=== PATIENT | female | born 1945 | race Caucasian/White ===

== ENCOUNTER 2023-12-10 12:35 | Emergency (ER) | payer MEDICAID, SELFPAY ==
--- NOTE | ~2023-12-10 | XR_ITS ---
EXAMINATION: XR KNEE, LEFT CLINICAL INFORMATION: Pain COMPARISON: None available. TECHNIQUE: Four views of the left knee. FINDINGS: No fracture or dislocation. The bones are osteopenic. There are mild degenerative changes with joint space narrowing at the medial femoral tibial joint and small osteophytes at the patellofemoral joint. No joint effusion. XR/XR knee LT 4V IMPRESSION: Osteopenia and mild degenerative changes.
--- NOTE | ~2023-12-10 | US_ITS ---
EXAMINATION: US VENOUS ULTRASOUND WITH DOPPLER LOWER EXTREMITY, LEFT CLINICAL INFORMATION: Knee and calf tenderness COMPARISON: None available. TECHNIQUE: Ultrasound of the deep veins is performed from the hip to the calf with compression sonography and color and pulse Doppler assessment. Spectral analysis with color-flow imaging is performed. FINDINGS: There is normal venous compression and respiratory variation and augmented flow. The visualized common femoral vein, superficial femoral vein, profunda femoral vein, popliteal vein, and the trifurcation region shows no evidence of deep venous thrombosis. There is a small fluid collection seen surrounding the anterior knee measuring 0.5 x 2.5 x 0.8 cm. US/US venous duplex LE LT IMPRESSION: No DVT demonstrated in the left lower extremity. Small fluid collection adjacent to the anterior knee.
--- NOTE | 2023-12-10 12:43 | ED_ITS ---
HPI - Fall General Chief Complaint: General Medical Stated Complaint: FALL,LLE POP W/PAIN/BRUISE,SPEAKS GEORGIAN PER EMS Time Seen by Provider: 12/10/23 12:42 Source: patient, family and EMS Mode of arrival: EMS Limitations: no limitations History of Present Illness HPI Narrative: Patient is an 78-year-old female with past medical history of hypertension, hyperlipidemia, chronic lower back pain with lower extremity neuropathy presenting to emergency department for evaluation. Per patient's son; Quinn who is a physician, she has been experiencing left knee pain for approximately 1 month. She was evaluated at the primary care office, advises that no imaging has been obtained, she trialed physical therapy a few times without any improvement in her pain. A few hours prior to arrival she went from a sitting to standing position when she felt a sudden popping sensation to the knee, and subsequently developed a small quarter-sized area of ecchymosis to the proximal medial calf that has been extending. The area is firm to touch and tender. Pain is made worse with ambulating and with plantar flexion of the foot. Patient's son gave her aspirin 81 mg and acetaminophen 500 mg. He reports a remote history of adrenal insufficiency secondary to steroid administration in the past, therefore he avoids all NSAIDs for patient per Nephrology's recommendation. Patient denies any chest pain, shortness of breath, difficulty breathing, numbness or tingling to the extremity, personal history of DVT/PE/malignancy, recent prolonged immobilization or surgery. Related Data Allergies Allergy/AdvReac Type Severity Reaction Status Date / Time Penicillins Allergy Intermediate Unknown Verified 12/10/23 12:48 Review of Systems 2 Review of Systems: Yes all other systems are reviewed and are negative [facility] Past Medical History Attestation statement: The following information was validated with the patient. Source: old records reviewed Social History Social History Smoked in Last 30 Days: No Use of substances other than those prescribed or required for medical reasons: No Advance Directives: No Advance Directives Information Provided: Yes Do you have a plan to hurt others: No Plan Physical Exam 2 Vital Signs: Vital Signs: Last Vital Signs Temp 97.0 F 12/10/23 16:46 Pulse 68 12/10/23 16:46 Resp 18 12/10/23 16:46 BP 157/65 H 12/10/23 16:46 Pulse Ox 96 12/10/23 16:46 O2 Del Method Room Air 12/10/23 16:46 BMI result Body Mass Index 30.1 Appearance: Alert.?Oriented to person, place and time. No acute distress.?Normal affect. Eyes: Pupils equal, round and reactive to light.? ENT: Pharynx normal.?? Neck: Normal inspection.? Neck supple.?? CVS: Heart sounds normal. Normal heart rate and rhythm.? Pulses normal.?? Respiratory: No respiratory distress.? Lung sounds clear to auscultation bilaterally?? Abdomen: Soft and non-tender. Normoactive bowel sounds. ? Skin: Skin warm and dry.? Normal skin color.? Extremities: No lower extremity edema.? Left proximal medial calf tenderness upon palpation, firm and indurated with area of extending ecchymosis per son at bedside. 2+ DP/PT pulse bilaterally. Decreased AROM to the left knee. Full AROM to the ankle. Neuro: Moves all extremities spontaneously. Sensation intact bilaterally. Course Reevaluation(s) Reevaluation #1: D-dimer of 365, age adjusted cutoff of 400, VTE unlikely. XR without acute fracture, degenerative changes present. Ultrasound without evidence of DVT, there is mention of a small fluid collection adjacent to the anterior knee, very small in size, on examination does not have obvious collection that would be amenable to any drainage. Dr. Yuan agrees. Chu bandage was applied, advised rest, ice, compression, elevation, acetaminophen for pain management and outpatient follow-up with primary care provider. She is ambulatory with steady gait in the use of a cane. Medications Administered Discontinued Medications Generic Name Dose Route Start Last Admin Trade Name Freq PRN Reason Stop Dose Admin Acetaminophen 650 mg 12/10/23 16:12 12/10/23 16:39 Acetaminophen 325 Mg Tablet PO 12/10/23 16:13 650 mg ONCE ONE Administration Medical Decision Making Medical Decision Making MDM Narrative: Patient is an 78-year-old female with past medical history of hypertension, hyperlipidemia, chronic lower back pain with lower extremity neuropathy presenting to emergency department for evaluation of sudden popping sensation to the left knee after having pain over the past month with area of ecchymosis tenderness upon palpation in induration to the proximal medial calf. Concern at this time for ruptured [place] cyst versus DVT, may have underlying degenerative changes to the knee as well. At this time extremity is neurovascularly intact distally. She has no respiratory symptoms, no indication of pulmonary embolism at this time no tachypnea hypoxia tachycardia. Patient's son who is a physician is requesting D-dimer to be obtained, I did discuss with him that ultrasound is being obtained to evaluate for DVT he will strongly about having D-dimer obtained. We did discuss that this may be elevated for many reasons, again I do not suspect pulmonary embolism. I discussed this case with ED attending Dr. Yuan who agrees. Differential Diagnosis Differential Diagnoses: The differential diagnosis associated with the presentation includes (See narrative above) Admission/Observation Consideration of admission/observation: Escalation of care including admission/observation considered Lab Data MDM Lab Attestation statement: I reviewed the patient's lab results. CBC is without leukocytosis, mild normocytic anemia that does not meet transfusion criteria, no thrombocytopenia or thrombocytosis. No electrolyte derangement. BUN mildly elevated at 20, creatinine within normal range 1.17, no baseline comparison available. LFTs within normal range. 12/10/23 13:14 12/10/23 13:14 Labs: Lab Results 12/10/23 Range/Units 13:14 WBC 5.4 (4.8-10.8) X10*3/uL RBC 3.87 L (4.20-5.50) X10*6/uL Hgb 11.2 L (12.0-16.0) g/dl Hct 33.7 L (37.0-47.0) % MCV 87.1 (80.0-98.0) fL MCH 28.9 (27.0-33.0) pg MCHC 33.2 (31.0-35.0) g/dl RDW 14.0 (11.0-16.0) % Plt Count 222 (160-400) X10*3/uL MPV 9.8 (9.4-12.3) fL Immature Gran % (Auto) 0.2 (0.0-0.4) % Neut % (Auto) 63.1 (45-73) % Lymph % (Auto) 20.1 (20-40) % [place] % (Auto) 9.2 (2-11) % Eos % (Auto) 6.5 H (0-4) % Baso % (Auto) 0.9 (0-2) % Lymph # (Auto) 1.1 L (1.2-4.9) X10*3/uL [place] # (Auto) 0.5 (0.1-1.2) X10*3/uL Eos # (Auto) 0.4 (0.0-0.4) X10*3/uL Baso # (Auto) 0.1 (0.0-0.2) X10*3/uL Abs Immat Gran (auto) 0.01 (0.00-0.03) X10*3/uL Absolute Neuts (auto) 3.4 (2.0-8.3) x10*3/uL Absolute Nucleated RBC 0.000 (0.0-0.012) X10*3/uL Nucleated RBC % (auto) 0.0 (0.0-0.2) /100WBC D-Dimer High Sensitivty 365 NG/ML Sodium 139 (135-145) mmol/L Potassium 4.4 (3.3-5.1) mmol/L Chloride 104 (96-108) mmol/L Carbon Dioxide 26 (22-29) mmol/L Anion Gap 13 (12-20) BUN 20 H (9-16) mg/dL Creatinine 1.17 (0.5-1.4) mg/dL Estim Creat Clear Calc 33.4 Estimated GFR 45 Random Glucose 104 (60-115) mg/dL Calcium 9.6 (8.4-10.2) mg/dL Total Bilirubin 0.8 (0.0-1.0) mg/dL AST 16 (5-31) U/L ALT 9 (0-31) U/L Alkaline Phosphatase 76 (39-117) U/L Total Protein 7.0 (6.5-8.0) g/dL Albumin 4.1 (3.5-5.0) g/dL Independent Interpretation I performed an independent interpretation of an: Plain X-Ray (No acute fracture) and Ultrasound (No evidence of DVT) Radiology Impression Discussion of test interpretation with radiology: I have reviewed the radiologist's reading. Radiologist Impression: XR/XR knee LT 4V IMPRESSION: Osteopenia and mild degenerative changes. US/US venous duplex LE LT IMPRESSION: No DVT demonstrated in the left lower extremity. Small fluid collection adjacent to the anterior knee. Independent Historian Clinical information obtained from an independent historian. History obtained from or confirmed by: EMS and Other (Son present as per HPI who provide history) Discharge Plan Discharge Clinical Impression: Knee pain Patient Disposition: Home, Self-Care Instructions: Knee Pain (ED), R.I.C.E. Treatment (ED) Referrals: Luz Freed MD [Primary Care Provider] - Interventions: ED Discharge Assessment Last Done: 12/10/23 16:46 Discharge Date/Time: 12/10/23 16:46 Print Language: Mongolian
[2023-12-10 12:45] VITALS: BP 143/68; BP 156/80; PULSE 72; PULSE 76; RESP 18; TEMP 36.7; O2SAT 96; O2SAT 99; BMI 30.1
[2023-12-10 13:13] VITALS: RESP 18
--- NOTE | 2023-12-10 13:17 | PC.NURSE ---
pt is alert and oriented, skin appropriate for ethnicity, respirations even and unlabored, pt reports standing up from the sofa and hearing a pop in the left knee area and instantly some bruising/discoloration appeared on the back of the calf area
[2023-12-10 13:20] LABS: Basophils Absolute Auto 0.1 X10*3/uL (0.0-0.2); Basophils Percent Auto 0.9 % (0-2); Eosinophils Absolute Auto 0.4 X10*3/uL (0.0-0.4); Eosinophils Percent Auto 6.5 % (0-4); Hematocrit 33.7 % (37.0-47.0); Hemoglobin 11.2 g/dl (12.0-16.0); Imm Gran Abs Auto 0.01 X10*3/uL (0.00-0.03); Imm Gran Pct Auto 0.2 % (0.0-0.4); Lymphocytes Absolute Auto 1.1 X10*3/uL (1.2-4.9); Lymphocytes Percent Auto 20.1 % (20-40); MANUAL DIFF FLAG NO; Mean Corpuscular HGB Conc 33.2 g/dl (31.0-35.0); Mean Corpuscular Hemoglobin 28.9 pg (27.0-33.0); Mean Corpuscular Volume 87.1 fL (80.0-98.0); Mean Platelet Volume 9.8 fL (9.4-12.3); Monocytes Absolute Auto 0.5 X10*3/uL (0.1-1.2); Monocytes Percent Auto 9.2 % (2-11); Neutrophils Absolute Auto 3.4 x10*3/uL (2.0-8.3); Neutrophils Percent Auto 63.1 % (45-73); Platelet Count 222 X10*3/uL (160-400); Red Blood Count 3.87 X10*6/uL (4.20-5.50); White Blood Count 5.4 X10*3/uL (4.8-10.8)
[2023-12-10 13:30] LABS: D Dimer High Sensitivity 365 NG/ML
[2023-12-10 13:40] LABS: Alanine Aminotransferase 9 U/L (0-31); Albumin Level 4.1 g/dL (3.5-5.0); Alkaline Phosphatase 76 U/L (39-117); Anion Gap 13 (12-20); Aspartate Amino Transferase 16 U/L (5-31); Bilirubin Total 0.8 mg/dL (0.0-1.0); Blood Urea Nitrogen 20 mg/dL (9-16); Calcium 9.6 mg/dL (8.4-10.2); Carbon Dioxide 26 mmol/L (22-29); Chloride 104 mmol/L (96-108); Creatinine Clr Calc Pharmacy 33.4; Estimated Glomerular Filt Rate 45; Glucose Random 104 mg/dL (60-115); Potassium 4.4 mmol/L (3.3-5.1); Sodium 139 mmol/L (135-145)
[2023-12-10] MEDS: Acetaminophen 325 MG TABLET 650 MG PO (16:39)
[2023-12-10 16:45] VITALS: BP 157/65; PULSE 68; RESP 18; TEMP 36.1; O2SAT 96
[2023-12-10 16:46] VITALS: BP 157/65; PULSE 68; RESP 18; TEMP 36.1; O2SAT 96
== END 2023-12-10 16:46 | disposition home or self-care (01) ==
PROVIDERS: Nurse Practitioner Family; Emergency Provider Emergency Medicine; PCP Internal Medicine
DX: M25.562 Pain in left knee (principal); I10 Essential (primary) hypertension; M54.50 Low back pain, unspecified; E78.5 Hyperlipidemia, unspecified
CPT/HCPCS: 36415; 73564; 80053; 85025; 85379; 93971; 99284